=== PATIENT | female | born 1995 | race Caucasian/White ===

== ENCOUNTER 2019-03-08 09:56 | Outpatient (CLI) | payer BC ==
--- NOTE | 2019-03-08 11:17 | RAD ---
LUMBAR SPINE TWO VIEWS: HISTORY: Sciatica right side. Back pain. FINDINGS: The lumbar vertebrae maintain height and alignment. The disk spaces are maintained. IMPRESSION: Unremarkable lumbar spine. POS: [facility]
== END 2019-03-08 09:57 | disposition home or self-care (01) ==
LOC: BICRAD 09:56
PROVIDERS: ATTEND Family Medicine
DX: M54.31 Sciatica, right side (principal)
CPT/HCPCS: 72100